=== PATIENT | female | born 1995 | race Caucasian/White ===

== ENCOUNTER 2018-02-19 21:35 | Observation (INO) | payer SELFPAY ==
[~2018-02-19] VITALS: Ht 162.6 cm; Wt 63.5 kg
== END 2018-02-20 00:25 | disposition home or self-care (01) ==
LOC: MLD 21:35
PROVIDERS: ADMIT Obstetrics & Gynecology; ATTEND Obstetrics & Gynecology
DX: O36.8120 Decreased fetal movements, second trimester, not applicable or unspecified (principal); Z3A.27 27 weeks gestation of pregnancy
CPT/HCPCS: 76805; G0378; Q0092